=== PATIENT | male | born 1960 | race Caucasian/White ===

== ENCOUNTER → 2021-02-01 | Day surgery (SDC) | payer MEDICARE ==
[~2021-02-01] MED LIST: DEXAMETHASONE SOD PHOS INJ 4 MG/ML VIAL ONE; FENTANYL CITRATE/PF 100MCG/2 ML INJ ONE; GLYCOPYRROLATE INJ 0.2 MG/ML VIAL ONE; KETOROLAC TROMETHAMINE 30 MG/ML VIAL ONE; LIDOCAINE 1% W/EPINEPHRINE 20 ML VIAL ONE; LIDOCAINE HCL 2% LOCAL INJ 5 ML SDV VIAL INJ ONE; LIPITOR20 MG PO; LISINOPRIL2.5 MG PO; METOPROLOL SUCC25 MG PO; MIDAZOLAM HCL 2 MG/2 ML VIAL ONE; NEOSTIGMINE 1 MG/ML 10ML VIAL ONE; ONDANSETRON HCL INJ 2MG/ML 2ML 2 MG/ML VIAL ONE; POVIDONE IODINE 0.05% 0.05 % ML PO ONE; PROPOFOL IV EMULSION 10 MG/ML 20 ML VIAL ONE; ROCURONIUM BROMIDE 10 MG/ML 5ML VIAL IV ONE; SEVOFLURANE INHAL SOLN 250 ML PEN BTL ONE
[2021-02-01 09:30] VITALS: BP 126/74
== END | disposition home or self-care (01) ==
LOC: OR 06:08
PROVIDERS: ATTEND Otolaryngology Otolaryngology/Facial Plastic Surgery
DX: L72.0 Epidermal cyst (principal); I11.0 Hypertensive heart disease with heart failure; I50.9 Heart failure, unspecified; E78.5 Hyperlipidemia, unspecified; Z89.512 Acquired absence of left leg below knee; Z87.891 Personal history of nicotine dependence
CPT/HCPCS: 11426; 12032; 88304; J1100; J1885; J2001; J2250; J2405; J2704; J2710; J3010